=== PATIENT | male | born 1970 | race African-American/Black ===

== ENCOUNTER 2019-11-23 16:14 | Emergency (ER) | payer OTHER, SELFPAY ==
[2019-11-23] MEDS ORDERED: Lidocaine 1% PF 5 ML VIAL ONE (16:24)
[2019-11-23] MEDS ORDERED: Bacitracin 1 PK ONE (17:03)
== END 2019-11-23 17:16 | disposition home or self-care (01) ==
LOC: BURERS 16:14
DX: S61.215A Laceration without foreign body of left ring finger without damage to nail, initial encounter (principal); W45.8XXA Other foreign body or object entering through skin, initial encounter
CPT/HCPCS: 12001